=== PATIENT | female | born 1955 | race Caucasian/White ===

== ENCOUNTER 2016-10-03 05:42 | Day surgery (SDC) | payer BC ==
[2016-10-03] MEDS ORDERED: LACTATED RINGERS 1,000 ML ONE (05:56)
[2016-10-03] MEDS ORDERED: IV START KIT ONE (05:56)
[2016-10-03] MEDS ORDERED: FENTANYL 250 MCG/5 ML AMP IV PRN (07:05)
[2016-10-03] MEDS ORDERED: MIDAZOLAM HCL 5 MG/5 ML VIAL IV PRN (07:05)
[2016-10-03] MEDS ORDERED: PROPOFOL 80 ML IV ONE (07:09)
[2016-10-03] MEDS ORDERED: LACTATED RINGERS 1,000 ML IV SCH (07:15)
--- NOTE | 2016-10-08 12:48 | SURGPATH ---
[facility] [address] [place] [id number] Patient Name: DAMON LAST MR#: [id number] : 1955 Gender: F Specimen #: [id number] Collected: 10/03/2016 Received: 10/05/2016 Reported: 10/08/2016 Submitting Phys: SIRENA DIGGS Copy To Phys: TAMIKA MANDUJANO [facility] Clinical History / Pre-Operative Diagnosis: Screening colonoscopy Specimen Source / Surgical Procedure Performed: Rectal polyp Interpretation: RECTUM, POLYPS, POLYPECTOMIES: - HYPERPLASTIC POLYP Electronically Signed Out Nunu Dick M.D. Gross Description: The specimen is received in formalin labeled with the patient's name and "rectal polyp". The specimen consists of two fragments of baig soft tissue each is 0.2-0.3 cm in greatest dimension. Submitted in toto in one cassette LOREN Chou Microscopic Description: Two fragment of colonic mucosa are seen. One shows a small hyperplastic polyp with increased cytoplasmic mucin , lacking horizontally oriented crypts or dysplasia. The second fragment shows a reactive lymphoid aggregate. 1: [id number] K62.1
== END 2016-10-03 09:15 | disposition home or self-care (01) ==
LOC: SDC 05:42
PROVIDERS: ATTEND Family Medicine
PROC: 0DBP8ZX Excision of Rectum, Via Natural or Artificial Opening Endoscopic, Diagnostic (ICD-10-PCS; principal; 2016-10-03)
DX: Z12.11 Encounter for screening for malignant neoplasm of colon (principal); D12.8 Benign neoplasm of rectum; K57.30 Diverticulosis of large intestine without perforation or abscess without bleeding; Z72.0 Tobacco use; Z80.8 Family history of malignant neoplasm of other organs or systems; Z80.3 Family history of malignant neoplasm of breast; Z80.6 Family history of leukemia
CPT/HCPCS: 45380; J7120